=== PATIENT | male | born 1965 | race Two or more races ===

== ENCOUNTER 2022-06-29 11:30 | Emergency (ER) | payer OTHER ==
[~2022-06-29] VITALS: Ht 165.1 cm; Wt 77.2 kg
[2022-06-29] MEDS ORDERED: ONDANSETRON HCL 4 MG/2 ML VIAL IV ONE (12:00)
[2022-06-29] MEDS ORDERED: SODIUM CHLORIDE 0.9% 1,000 ML IV ONE (12:00)
[2022-06-29 12:29] LABS: Urine Blood 1+ /uL (Negative); Urine Specific Gravity 1.013 (1.001-1.035)
[2022-06-29 12:36] LABS: Basophils # (auto) 0 10 ^3/uL (0-0.2); Basophils % (auto) 0.6 % (0.0-2.0); Eosinophils # (auto) 0 10 ^3/uL (0-0.8); Eosinophils % (auto) 0.5 % (0.0-7.0); Hematocrit 47.1 % (41.0-53.0); Hemoglobin 15.8 g/dL (13.5-17.5); Lymphocytes # (auto) 1.8 10 ^3/uL (0.4-5.4); Lymphocytes % (auto) 24.7 % (10.0-50.0); Mean Corpuscular Hemoglobin 27.7 pg (28.0-32.0); Mean Corpuscular Hgb Conc. 33.5 g/dL (32.0-36.0); Mean Corpuscular Volume 82.7 fL (80.0-100.0); Monocytes # (auto) 0.3 10 ^3/uL (0-1.3); Monocytes % (auto) 3.9 % (0.0-12.0); Neutrophils # (auto) 5.2 10 ^3/uL (1.6-8.6); Neutrophils % (auto) 70.3 % (37.0-80.0); Nucleated Red Blood Cells % 0.3 %; Red Blood Cells 5.69 10^6/uL (4.5-5.90); Red Cell Distribution Width 13.5 % (11.8-14.3); White Blood Cell 7.4 10^3/uL (4.4-10.8)
[2022-06-29 13:14] LABS: Potassium 4.3 mmol/L (3.5-5.1)
[2022-06-29 13:15] LABS: Anion Gap 28.6 (5-15); BUN/Creatinine Ratio 13.3; Bilirubin, Total 0.6 mg/dL (0.2-1.0); Calcium 9.4 mg/dL (8.5-10.1)
[2022-06-29 13:16] LABS: Total Protein 7.6 g/dL (6.4-8.2)
[2022-06-29 13:20] LABS: Carbon Dioxide 9.4 mmol/L (21-32)
[2022-06-29 16:00] VITALS: BP 138/78
== END 2022-06-29 17:18 | disposition home or self-care (01) ==
LOC: ER 11:30
DX: H53.8 Other visual disturbances (principal); E11.8 Type 2 diabetes mellitus with unspecified complications; E78.5 Hyperlipidemia, unspecified; I10 Essential (primary) hypertension
CPT/HCPCS: 36415; 70450; 70480; 80053; 81001; 83690; 85025; 96361; 96374; 99284; J2405; J7030